=== PATIENT | female | born 1960 | race Caucasian/White ===

== ENCOUNTER 2023-10-01 08:57 | Outpatient (AMB) | payer BC, SELFPAY ==
[2023-10-01 09:05] VITALS: BP 120/90; PULSE 83; TEMP 36.7; O2SAT 97; BMI 33.1
--- NOTE | 2023-10-01 09:05 | MHC.OFFWIV ---
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 This occurred yesterday at home [facility] Social History Patient Tobacco Use Status: Never used Tobacco Review of Systems Const All systems reviewed & are unremarkable except as noted in HPI and below Physical Exam Vital Signs: Last Vital Signs Temp 98.0 F 10/01/23 09:05 Pulse 83 10/01/23 09:05 BP 120/90 H 10/01/23 09:05 Pulse Ox 97 10/01/23 09:05 Oxygen Delivery Method Room Air 10/01/23 09:05 BMI result Body Mass Index 33.1 Extrem Right upper extremity: Extremity exam: right hand Details: swelling and foreign body Location: of the thumb Location: at the nailbed and involving the fingernail (Large wood foreign body located under the nail) Results Reviewed Results Reviewed: After local anesthesia with 2% lidocaine the nail of the right thumb was trimmed slightly and using a hemostat the large wooden foreign body was removed in 1 piece. This was reviewed with the patient Assessment & Plan Assessment & Plan (1) Foreign body (FB) in soft tissue: Code(s): M79.5 - Residual foreign body in soft tissue Plan: Excision of foreign body was completed successfully. The patient will keep her dry sterile dressing on for 48 hours. If she develops increasing pain after that time she is to return to urgent care for possible antibiotics Plan See plan Coding Level of Care Code Est Pt Level 3 (31327) Diagnoses Foreign body (FB) in soft tissue M79.5
== END 2023-10-01 10:39 | disposition home or self-care (01) ==
PROVIDERS: PCP Internal Medicine; Visit Provider Physician Assistant Medical
DX: M79.5 Residual foreign body in soft tissue (principal)
CPT/HCPCS: 99213

== ENCOUNTER 2024-10-26 13:49 | Outpatient (AMB) | payer BC, SELFPAY ==
--- NOTE | 2024-10-26 13:58 | MHC.OFFWIV ---
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 She states that she started with a sore throat last night. She states that her throat was scratchy but she had no pain with swallowing. She states that she has some post nasal drip. She has a slight runny nose. She states that her throat hurt more this am and she took an allergy medicine at home. She has no associated HERNANDEZ, ear pain, CP, SOB, cough, sinus pain or pressure. She denies fever or chills. She denies sick contacts. She denies smoking. She states that she also noted to have a bump on the right inner thigh. She states that she did not think much of it but then when she took a shower she noticed a raised bump with redness around it. She states that she was worried because it was raised and had redness around it. She denies other rashes or lesions. She denies discharge or bleeding. She denies fever, chills or joint pain. [facility] Social History (System 01/08/24 @ 15:18 by Rubi Ojeda) Patient Tobacco Use Status: Never used Tobacco Patient : No Review of Systems Const Denies body aches, Denies chills, Denies fever(s), Denies headache(s) and Denies poor appetite ENT Denies otalgia, Denies facial pain, Denies headache(s), Denies nasal discharge, Denies sinus pain, Denies sinus pressure, Reports sore throat and Denies throat swelling Card Denies chest pain and Denies dyspnea Resp Denies chest congestion, Denies cough, Denies dyspnea and Denies wheezing GI Reports no additional complaints Musc Denies myalgias Skin/Breast Denies pruritus, Reports lesions, Denies erythema and Denies rash Neuro Denies headache(s) Artemio/Lymph Denies lymphadenopathy Aller/Immun Denies urticaria, Reports seasonal rhinorrhea, Denies throat swelling and Denies wheezing Physical Exam Vital Signs: Last Vital Signs Temp 98.7 F 10/26/24 14:02 Pulse 79 10/26/24 14:02 Resp 16 10/26/24 14:02 BP 124/74 10/26/24 14:02 BMI result Body Mass Index 33.6 Const General: cooperative, healthy appearing, comfortable, no acute distress, well developed, alert and awake Nutritional Appearance: well nourished HEENT Head: Yes normocephalic Ears: TM's normal bilaterally General nose exam: Normal nares present, Normal nasal mucous membranes and turbinates present and No nasal discharge present Face and sinus: Yes sinuses nontender Mouth: Normal oral and palatal mucosa present, oropharynx normal and moist mucous membranes Throat: Yes posterior oropharynx normal, Yes tonsils normal and Yes uvula midline Resp Auscultation: clear to auscultation bilaterally Cardio Rate: regular rate Rhythm: regular rhythm Skin Lesions: lesion noted (Small pustule noted on the rt inner upper thigh with mild erythema noted.) Office Procedures I&D Drain Details: Cleaned area with alcohol. Used an 18 guage to deroof the pustule. No purulent drainage noted. Cleaned area with normal saline. Bandaid applied. [id number] Drainage of Lesion All charges added?: Procedure code (CPT) selection complete Results AMB Rapid Strep AMB Rapid Strep Negative Last Edit by Papo Julio CMA on 10/26/24 14:44 Assessment & Plan Assessment & Plan (1) Sore throat (viral): Code(s): J02.8 - Acute pharyngitis due to other specified organisms; B97.89 - Other viral agents as the cause of diseases classified elsewhere Plan: Most likely viral vs strep vs URI plan- -rapid culture in the office was negative -salt water gargles -Tylenol or Motrin as needed -zyrtec D daily -flonase daily to each nostril -diet as tolerated (2) Pustule: Code(s): L08.9 - Local infection of the skin and subcutaneous tissue, unspecified Plan: Most likely folliculitis plan- -warm compresses to the area -bactroban ointment to the area BID for 10 days -watch for signs of infection, discharge or fever Orders: Orders AMB Rapid Strep Screen Today Z13.9 - Encounter for screening, unspecified AMB Incision & Drainage Today L08.9 - Local infection of the skin and subcutaneous tissue, unspecified Medications: New cetirizine-pseudoephedrine 5-120 mg ER (Zyrtec-D) 1 tab PO DAILY 14 days 14 tabs 0RF mupirocin 2% 1 appl topical BID 10 days 22 grams 0RF fluticasone propionate 50 mcg/actuation (Flonase Allergy Relief) administer into each nostril 1 spray intranasal DAILY 16 grams 0RF Coding Level of Care Code New Pt Level 3 (47144) Diagnoses Sore throat (viral) J02.8; B97.89 Pustule L08.9 CPT Codes I&D Drain - DRAIN 10: [id number] Drainage of Lesion ([id number])
[2024-10-26 14:02] VITALS: BP 124/74; PULSE 79; RESP 16; TEMP 37.1; BMI 33.6
--- OUTSIDE RECORDS SUMMARY | 2024-10-26 14:46 | XMS_ITS | Patient Health Record ---
Author Organization [facility] [place] Address [address] [place] [address] Care Team Providers Care Salesperson Recreational Vehicles Name Role Phone Yenni CAICEDO, Cheryl Primary Care Provider Unav ailable Black, Dayanara Unavailable [phone] Allergies Allergen (clinical drug ingredient) Drug/Non Drug Allergy documented on EMR Reaction Allergy Type Onset Date Status sulfamethoxazole / trimethoprim Bactrim rash Drug Allergy Active Darvon Unknown Drug Allergy Active acetaminophen / oxycodone Percocet Unknown Drug Allergy Active codeine Codeine vomiting Drug Allergy Active Reason For Referral No Information Medications Medication SIG (Take, Route, Fr equency, Duration) Notes Start Date End Date Status Omeprazole Active Advil 200 MG 1 tablet as needed O rally every 6 hrs 02/20/2014 Unknown Vitamin B Complex Ac tive Multivitamin Active Vitamin D Active Fish Oil Active Vitamin E Active Social History Tobacco use other than smoking: Question Answer Notes Are you an other tobacco user? No Problems Problem Type SNOMED Code ICD Code Onset Dates Problem Status W/U Status Risk Notes Problem Acquired hammer toe of right foot (1156008630512214) Other hammer toe(s) (acquired), right foot (M20.41) Active confirmed Problem Acquired hammer toe of left foot (8884575390702991) Other hammer toe(s) (acquired), left foot (M20.42) Active confirmed Problem Localized, primary osteoarthritis of the ankle and/or foot (527218518) Arthritis of joint of lesser toe, left (M19.072) Active confirmed Problem Localized, primary osteoarthritis of the ankle and/or foot (125191551) Arthritis of joint of lesser toe, right (M19.071) Active confirmed Plan Of Treatment Pending Test Test Name Order Date X ray : Foot, left 2V 02/20/2014 X ray : Foot, right 2V 02/20/2014 X ray : Foot, left 3V 08/06/2015 Insurance Providers Payer Name Payer Address Payer Phone Subscriber Number Group Number Insured Name Patient Relationship to Insured Coverage Start Date Coverage End Date [facility] [address] [place] [address] [id number] Teo Chery Self - patient is the insured Medical (General) History Medical History History ICD Code Depression Arthritis Broken bones Gall bladder problems Chicken pox Surgical History Surgery Date(Month/Year) cholecystectomy hysterectomy Gall bladder removal 2008
== END 2024-10-26 14:45 | disposition home or self-care (01) ==
PROVIDERS: PCP Internal Medicine; Visit Provider Physician Assistant Medical
DX: J02.8 Acute pharyngitis due to other specified organisms (principal); B97.89 Other viral agents as the cause of diseases classified elsewhere; L08.9 Local infection of the skin and subcutaneous tissue, unspecified

== ENCOUNTER → 2024-10-26 13:49 | Outpatient (BNVA) | payer BC, SELFPAY | PROVIDERS: PCP Internal Medicine; Visit Provider Physician Assistant Medical | DX: J02.8 Acute pharyngitis due to other specified organisms (principal); B97.89 Other viral agents as the cause of diseases classified elsewhere; L08.9 Local infection of the skin and subcutaneous tissue, unspecified | CPT/HCPCS: 10160; 87880 ==

== ENCOUNTER 2024-12-26 13:50 | Outpatient (AMB) | payer BC, SELFPAY ==
[2024-12-26 14:15] VITALS: BP 102/70; PULSE 100; TEMP 36.8; O2SAT 97; BMI 32.0
--- NOTE | 2024-12-26 14:15 | AM.OFFWIN_ITS ---
Intake Vital Signs 12/26/24 14:15 Height 5 ft 6 in Weight 198 lb BMI 32.0 BP 102/70 Blood Pressure Location Rt brachial Position Sitting Pulse 100 Pulse Source Pulse Oximeter Temp 98.2 F Temp Source Oral Pulse Oximetry (%) 97 Oxygen Delivery Method Room Air Intake Visit Reasons: EP pain on LT ear Intake Note: pt presents with LT ear pain for a couple days Patient Tobacco Use Status: Never used Tobacco Allergies acetaminophen (From Percocet) Allergy (Intermediate, Verified 12/26/24 14:16) Vomiting oxycodone (From Percocet) Allergy (Intermediate, Verified 12/26/24 14:16) Vomiting codeine (CODEINE) Allergy (Unknown, Verified 12/26/24 14:16) UNKNOWN From DARVON-N Allergy (Unknown, Uncoded 01/08/24 15:18) STOMACH UPSET Medication List - Last Reconciled 12/26/24 by Tori Yepez PA-C alprazolam 0.5 mg PO QID PRN fluticasone propionate 50 mcg/actuation (Flonase Allergy Relief) 1 spray intranasal DAILY PRN loratadine (Claritin) 10 mg PO DAILY mupirocin 2% 1 appl topical BID PRN Do you need a note to return to daycare/school/sports/work: No HPI HPI Comments History of Present Illness Details History - The patient is a 64-year-old female pr esenting with ear pain and blockage in the left ear. - The patient reports a history of earac hes, with the current episode starting approximately three to four days ago, prior to a family bereavement. - The pain has been severe enough to pre vent sleep for the past two nights, and the patient has attempted self-treatment with Advil, Afrin, and Claritin without relief. - The patient reports significant hearin g loss in the affected ear, unable to hear the television even at high volume, and notes that the ear feels blocked. - The patient has a history of small ear canals, requiring regular wax removal every six months due to hearing issues. - The patient denies fever but reports t enderness and pain extending to the surrounding skin and lymph nodes. Physical Exam General: Cooperative, healthy appearing, comfortable, no acute distress and well developed Orientation: Patient oriented x3 Limitations: No limitations Head: Normal to inspection Ears: External ears normal bilaterally, TM normal right ear, left EAC with edema and erythema unable to visualize TM on the left Face and sinus: Normal facial exam Neck: Normal visual inspection and Yes full ROM, left post auricular lymphedema and ttp Respiratory: Normal respiratory effort and able to speak in complete sentences. Skin: No rashes or lesions noted Neuro: Patient oriented x3 Extremities: normal to inspection [facility] Social History (System 01/08/24 @ 15:18 by Rubi Ojeda) Patient Tobacco Use Status: Never used Tobacco Review of Systems Const All systems reviewed & are unremarkable except as noted in HPI and below Physical Exam Vital Signs: Last Vital Signs Temp 98.2 F 12/26/24 14:15 Pulse 100 12/26/24 14:15 BP 102/70 12/26/24 14:15 Pulse Ox 97 12/26/24 14:15 Oxygen Delivery Method Room Air 12/26/24 14:15 BMI result Body Mass Index 32.0 Assessment & Plan Assessment & Plan (1) Left otitis externa: Code(s): H60.92 - Unspecified otitis externa, left ear Qualifiers: Chronicity: acute Otitis externa type: diffuse Qualified Code(s): H60.312 - Diffuse otitis externa, left ear Plan: Plan Patient was informed and verbally consented to the use of an ambient scribe for clinic note documentation during this visit. 1. Acute Otitis Externa left side - Prescribed ear drops containing a steroid and antibiotic to reduce inflammation and treat infection. - Advised to increase fluid intake to help flush out the infection. - Recommended use of ibuprofen for pain management. - Follow up with PCP if no improvement in pain. Medications: New [id number] 3.5-10,000-1 mg/mL-unit/mL-% 4 drps otic (ear) left QID 10 mL 0RF 7 days Tori Yepez PA-C Changed From fluticasone propionate 50 mcg/actuation (Flonase Allergy Relief) administer into each nostril 1 spray intranasal DAILY 16 grams 0RF To fluticasone propionate 50 mcg/actuation (Flonase Allergy Relief) administer into each nostril 1 spray intranasal DAILY PRN YAZAN Bro From mupirocin 2% 1 appl topical BID 10 days 22 grams 0RF To mupirocin 2% 1 appl topical BID PRN Rizwana Vu PA-C Coding Level of Care Code New Pt Level 3 (32773) Diagnoses Acute diffuse otitis externa of left ear H60.312 Chronicity: acute Otitis externa type: diffuse
--- OUTSIDE RECORDS SUMMARY | 2024-12-26 14:30 | XMS_ITS | Patient Health Record ---
Author Organization [facility] [place] Address [address] [place] [address] Care Team Providers Care Event Lighting Specialist Name Role Phone Yenni CAICEDO, Cheryl Primary Care Provider Unav ailable Black, Dayanara Unavailable [phone] Allergies Allergen (clinical drug ingredient) Drug/Non Drug [...] Problem Acquired hammer toe of right foot ([id number]) Other hammer toe(s) (acquired), right foot (M20.41) Active confirmed Problem Acquired hammer toe of left foot ([id number]) Other hammer toe(s) (acquired), left foot (M20.42) Active confirmed Problem Localized, primary osteoarthritis of the ankle and/or foot (290026400) Arthritis of joint of lesser toe, left (M19.072) Active confirmed Problem Localized, primary osteoarthritis of the ankle and/or foot (323382094) Arthritis of joint of lesser toe, right [...] Insured Coverage Start Date Coverage End Date [facility] [address] [place] [address] [id number] Teo Chery Self - patient is the insured Medical (General) History Medical History History ICD Code Depression Arthritis Broken bones Gall bladder problems Chicken pox Surgical History Surgery Date(Month/Year) cholecystectomy hysterectomy Gall bladder removal 2008
--- OUTSIDE RECORDS SUMMARY | 2024-12-26 14:30 | XMS_ITS | Data Portability ---
Author Organization [place] - [facility], Allergy Address [address] [address] Care Team Providers Care Golf [employer] Maker Name Role Phone HODA CHAMPION Primary Care Provider Assessment Encounter Date Assessment Date Assessment LastModified by Organization Details LastModified Time 02/16/2024 02/16/2024 Impacted cerumen was debrided bilaterally today. She will return in six months. [email or web address] Not available 02/16/2024 13:44:25 08/25/2024 08/25/2024 Impacted cerumen was removed bilaterally. Patient reported immediate improvement in her hearing. She would like to hold off on repeat audiogram today. She will follow up at her convenience for evaluation of her throat. Recommend six month ear cleaning. [email or web address] Not available 08/25/2024 09:33:12 Plan of Treatment Reminders Order Date Submit Date Provider Last Modified By Organization Details Last Modified Time Details Appointments Establish ed 15 2024 09:15A M LUZ DONOHUE MD Not available Not available Not available Lab None recorded. Referral None recorded. Procedures None recorded. Surgeries None recorded. Imaging None recorded. Medication Orders None recorded. Patient TargetsNo targets recorded. Patient InstructionsNo instructions recorded. Reason for Referral None Reported. Results Created Date Observation Date Name Description Value Unit Range Abnormal Flag Note LastModifiedBy Organization Detail LastModifiedTime 01/20/20 24 06/26/2021 imagi ng/di agnos tic resul t No observ ation record ed. [email or web address] Not Available 05:04:32 01/20/20 24 05/28/2021 imagi ng/di agnos tic resul t No observ ation record ed. [email or web address] Not Available 05:05:05 Result Notes None recorded. Problems Name Problem SNOMED Code Status Onset Date Resolution Date Notes Provider Name and Address Organization Details Recorded Time Deviated nasal septum 931593941 Active 2016 Deviated nasal septum; Note: Date Diagnosed : 03/09/2017 10:52 AM (J34.2) Not Available [facility] 4 02:21:23 Headache 66010626 Active 2016 Headache; Note: Date Diagnosed : 03/09/2017 10:53 AM (R51) Not Available [facility] 4 02:21:03 Gastroeso phageal reflux disease without esophagit is 349105415 Active 2020 Gastro-es ophageal reflux disease without esophagit is; Note: Date Diagnosed : 1 2:17 PM (K21.9) Not Available [facility] 4 02:21:17 Non-toxic uninodula r goiter 938094879 Active 2020 Nontoxic single thyroid nodule; Note: Date Diagnosed : 1 2:17 PM (E04.1) Not Available [facility] 4 02:20:45 Impacted cerumen of bilateral ears 78227576681 11755 Active 2020 Impacted cerumen, bilateral ; Note: Date Diagnosed : 1 2:17 PM (H61.23) Not Available [facility] 4 02:20:46 Respirato ry finding 780691385 Active 2020 Feeling of foreign body in throat; Note: Date Diagnosed : 1 2:17 PM (R09.89) Not Available [facility] 4 02:21:14 Cardiovas cular finding 738673759 Active 2020 Feeling of foreign body in throat; Note: Date Diagnosed : 1 2:17 PM (R09.89) Not Available [facility] 4 02:21:14 Sensorine ural hearing loss of bilateral ears 789413677 Active 2020 Sensorine ural hearing loss, bilateral ; Note: Date Diagnosed : 1 12:35 PM (H90.3) Not Available [facility] 4 02:21:19 Impacted cerumen 42610634 Active 2021 Impacted cerumen; Note: Date Diagnosed : 11/11/2021 9:41 AM (380.4) Not Available [facility] 4 02:21:22 Problem Notes None recorded. Procedures Surgical History Date Name Laterality Status Provider Name and Address Organization Details Recorded Time 5 Cerumen removal without microscope bilat completed HARLEY PEACE PA-C [address] [facility] [[email or web address] [address], [place], [address], [facility] - [facility] 08/25/2024 09:32:20 Imaging Results None recorded. Procedure Notes None recorded. Medical Equipment None Reported. Allergies Allergen ID Allergen Name Allergen Category Reaction Reaction Severity Criticality Documentation Date Start Date Code Code System Note Provider Name and Address Organization Details Recorded Time 85616 Darvocet- N medicatio n other Not available Not available 10/13/2023 47129 UNK React ion: other react ion, Unkno wn; Not Available [facility] 4 00:52:13 68395 codeine medicatio n other Not available Not available 10/13/2023 2670 RxNorm React ion: other react ion, Unkno wn; Not Available [facility] 4 00:52:22 72238 acetamino phen / oxycodone medicatio n other Not available Not available 10/13/2023 12367 3 RxNorm React ion: unkno wn, unspe cifie d;; Not Available [facility] 4 00:52:25 Medications Name Sig Start Date Stop Date Status Note LastModified by Organization Details LastModified Time amoxicill in 500 mg capsule TAKE 1 CAPSULE BY MOUTH THREE TIMES A DAY active Not Available Not Available No t Available fluconazo le 100 mg tablet TAKE 1 TABLET BY MOUTH DAILY FOR 14 DAYS active Not Available Not Available No t Available azithromy gillian 250 mg tablet TAKE 2 TABLETS BY MOUTH TODAY, THEN TAKE 1 TABLET DAILY FOR 4 DAYS DIRECTED active Not Available Not Available No t Available tretinoin 0.025 % topical cream PLEASE SEE ATTACHED FOR DETAILED DIRECTIO NS active Not Available Not Available No t Available phenazopy ridine 200 mg tablet TAKE 1 TABLET BY MOUTH THREE TIMES A DAY active Not Available Not Available No t Available ondansetr on HCl 4 mg tablet NEEDED TAKE ONE OR TWO TABS BY MOUTH EVERY 8 HOURS NEEDED FOR NAUSEA active Not Available Not Available No t Available clonazepa m 0.5 mg tablet 03/25 completed Medicati on ID: [id number] D uration Value: 30 Brand Name: clonazep am Send Method: E-Prescr ibed Sub s Allowed: subs OK Medic ationGen ericName : clonazep am Not Available Not Available Not Available valacyclo vir 500 mg tablet TAKE ONE TABLET BY MOUTH TWICE A DAY BEGINNIN G ONE DAY PRE-OP FOR A TOTAL OF THREE DAYS active Not Available Not Available No t Available ciproflox acin 500 mg tablet TAKE 1 TABLET BY MOUTH TWICE A DAY active Not Available Not Available No t Available clindamyc in 1 %-benzoyl peroxide 5 % topical gel APPLY SPARINGL Y TWICE A DAY TO BUTTOCK AREA RASH UNTIL CLEAR, THEN NEEDED active Not Available Not Available No t Available lidocaine -prilocai ne 2.5 %-2.5 % topical cream APPLY TOPICALL Y TO AFFECTED AREA DIRECTED BY PHYSICIA N 30G 6RF active Not Available Not Available No t Available alprazola m 0.5 mg tablet TAKE 1 TABLET BY MOUTH EVERY 6 TO 8 HOURS active Not Available Not Available No t Available clindamyc in 1 % topical gel APPLY TWICE DAILY FOR ACTIVE PIMPLES active Not Available Not Available No t Available benzonata te 100 mg capsule TAKE 1 CAPSULE BY MOUTH 3 TIMES A DAY NEEDED FOR COUGH active Not Available Not Available No t Available esomepraz ole magnesium 40 mg capsule,d elayed release TAKE 1 CAPSULE BY MOUTH TWICE A DAY active Not Available Not Available No t Available hydrocodo ne-homatr opine 5 mg-1.5 mg/5 mL oral solution TAKE 5 TO 10 ML BY MOUTH EVERY 6 HOURS FOR COUGH SUPRESSI ON (MAX 150 PER INS) active Not Available Not Available No t Available betametha sone, augmented 0.05 % topical ointment APPLY TWICE DAILY NEEDED FOR ECZEMA active Not Available Not Available No t Available omeprazol e 20 mg capsule,d elayed release 2020 active Medicati on ID: [id number] B rand Name: omeprazo le Send Method: E-Prescr ibed Sub s Allowed: subs OK Medic ationGen ericName : omeprazo le Not Available Not Available Not Available zolpidem 5 mg tablet TAKE ONE TABLET AT BEDTIME FOR CHRONIC INSOMNIA active Not Available Not Available No t Available methylpre dnisolone 4 mg tablets in a dose pack TAKE 6 TABLETS ON DAY 1 DIRECTED ON PACKAGE AND DECREASE BY 1 TAB EACH DAY FOR A TOTAL OF 6 DAYS active Not Available Not Available No t Available albuterol sulfate HFA 90 mcg/actua tion aerosol inhaler INHALE 1 TO 2 PUFFS BY MOUTH EVERY 6 HOURS NEEDED active Not Available Not Available No t Available amoxicill in 875 mg-potass ium clavulana te 125 mg tablet TAKE 1 TABLET BY MOUTH TWICE A DAY WITH FOOD active Not Available Not Available No t Available bupropion HCl XL 150 mg 24 hr tablet, extended release 03/25 completed Medicati on ID: [id number] D uration Value: 30 Brand Name: bupropio n HCl Send Method: E-Prescr ibed Sub s Allowed: subs OK Medic ationGen ericName : bupropio n HCl Not Available Not Available Not Available tiotropiu m bromide 18 mcg capsule with inhalatio n device INHALE THE CONTENTS OF 1 CAPSULE INTO THE LUNGS VIA HANDIHAL ER ONCE DAILY. active Not Available Not Available No t Available nitrofura ntoin monohydra te/macroc rystals 100 mg capsule TAKE 1 CAPSULE BY MOUTH TWICE A DAY active Not Available Not Available No t Available metronida zole 1 % topical gel 03/25 completed Medicati on ID: [id number] D uration Value: 20 Brand Name: metronid azole Se nd Method: E-Prescr ibed Sub s Allowed: subs OK Medic ationGen ericName : metronid azole Not Available Not Available Not Available GaviLyte- G 236 gram-22.7 4 gram-6.74 gram-5.86 gram oral solution MIX/PREP AND DRINK 8 OZ EVERY 10-15 MINUTES UNTIL FINISHED active Not Available Not Available No t Available Yuvafem 10 mcg vaginal tablet INSERT ONE TAB VAGINALL Y 3 TIMES A WEEK 36 4RF active Not Available Not Available No t Available Vitals Date Recorded Body height Body mass index (BMI) Body weight Provider Name and Address Organization Details Last Updated DateTime 08/25/2024 167.64 cm 31.5 kg/m2 24204.51 g Carli Cortez [facility] 08/25/2024 09:14:41 Date Recorded Body height Body mass index (BMI) Body weight Provider Name and Address Organization Details Last Updated DateTime 02/16/2024 167.64 cm 31.5 kg/m2 78989.51 g Roger Patti [facility] 02/16/2024 13:36:16 Social History None recorded. Functional Status None recorded. Mental Status None recorded. Family History Nothing Reported. Medical History No medical history recorded. Gynecological HistoryNo gynecological history recorded. Obstetrics History GPAL:G 0 P 0 0 0 0 Past Encounters Encounter ID Performer Location Encounter Start Date Encounter Closed Date Diagnosis/Indication Diagnosis SNOMED-CT Code Diagnosis ICD10 Code Diagnosis Note [id number] LISSETT RODRIGUEZ PA-C [facility] on [address] [place] [phone] 02/16/2024 13:22:45 02/16/2024 13:45:09 Impacted cerumen of bilateral ears 2934320247 467661 H61.23 [id number] HARLEY PEACE PA-C [facility] on [address] [place] [phone] 08/25/2024 08:59:50 08/25/2024 09:29:03 Impacted cerumen of bilateral ears [id number] 534169 H61.23 Health Concerns Section Related Observation LastModified by Organization Detai ls LastModified Time None Recorded Concern Status LastModified by Organization Details LastModified Time None Recorded Advance Directives Directive None Recorded Payers Insurance Date Sequence Insurance Name Policy Number Policy Ghotra Covered Member ID Ghotra Member ID Guarantor Name 09/07/2024 1 EYAD (PPO) [id number] Teo Chery [id number] Teo Chery OBGyn Episode No OBEpisode recorded.
--- OUTSIDE RECORDS SUMMARY | 2024-12-26 14:30 | XMS_ITS | Clinical Summary ---
Author Organization [facility] Address [address] [place] [id number] Phone Care Team Providers Care Instructor Painting Name Role Phone Cheryl Hyman MD Primary Care Provider Allergies Active Allergy Reactions Criticality Noted Date Comments Codeine Nausea and/or Vomiting 07/09/2018 Propoxyphene 07/09/2018 Oxycodone-Acetaminophen Nausea and/or Vomiting 07/09/2018 Medications ascorbic acid, vitamin C, (VITAMIN C) 250 MG tablet Take 250 mg by mouth daily. Active esomeprazole (NEXIUM) 20 MG capsule Take 20 mg by mouth daily before breakfast. Active lidocaine 5 % ointment Apply topically as needed. 30 g 12 9 Active cholecalciferol (VITAMIN D3) 2,000 unit capsule Take 2,000 Units by mouth daily. Active ALPRAZolam (XANAX) 0.5 MG tablet 9 Active YUVAFEM 10 mcg Tab 0 Active triamcinolone acetonide 0.1 % ointmentIndicat ions:Labial irritation Apply topically 2 (two) times a day. 30 g 1 Active Active Problems Problem Noted Date Diagnosed Date Chronic fatigue 12/13/2018 Assessment & Plan (01/21/2019 9:13 AM EDT): I did not find any endocrine cause for fatigue. She does not have adrenal insufficiency as indicated in the HPI and this was her main concern. I do find that she is overweight and she could lose weight and possibly feel better. I think she should exercise because she also has a lot of anxiety and worries about a lot of things are necessarily and she knows this. Exercise will help relieve stress will help her lose weight and she will feel more energetic overall. She needs to incorporate diet healthy diet and also get good sleep hygiene. If she feels he needs to see a dietitian to help in this regard that would be beneficial. She informs me that she is going to try this on home for the next 2 months and if she is not successful she will come back actually she wants to schedule a follow-up appointment now for obesity management. Weight loss medications may be helpful for her in this respect. Assessment & Plan (12/13/2018 11:16 AM EDT): The patient had had fatigue may be a year after an adrenalectomy. She wonders if it is at all related. She has one adrenal gland but this should produce enough cortisol to prevent her from becoming adrenal insufficient. In any case I would like to check comprehensive levels for electrolytes and check a fasting cortisol level for evaluation of deficiency which could imply adrenal insufficiency. However fatigue could be related to so many different reasons. I will also check CBC for anemia, ESR for inflammatory causes of magnesium to ensure that levels are within the reference range. She was vitamin D deficient in the past which can cause fatigue but doubt this is within the reference range and she is not hypothyroid. 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 Abnormal weight gain 07/09/2018 Menopause syndrome 07/09/2018 Family history of breast cancer 07/09/2018 Family history of colon cancer in father 019 Encounter for routine gynecological examination 07/09/2018 Vaginitis and vulvovaginitis 07/09/2018 Vaginal atrophy 07/09/2018 Immunizations Immunization Administration Dates Next Due Influenza Trivalent Preservative Free IM 015 Family History Medical History Relation Comments Colon cancer Father Pneumonia Father Breast cancer Mother Relation Status Comments Father Mother Social History Tobacco Use Types Packs/Day Years Used Date Smoking Tobacco: Never Smokeless Tobacco: Never Alcohol Use Standard Drinks/Week Comments Yes 0 (1 standard drink = 0.6 oz pur e alcohol) rare Education Answer Date Recorded Are you interested in more education? Not on brenden e 09/26/2022 Are you concerned about learning? Not on file 09/26/2022 No 09/26/2022 No 09/26/2022 Digital Access Answer Date Recorded No 10/27/2022 No 10/27/2022 No 10/27/2022 Reliable internet access at home? Not on file 10/27/2022 Device with a working camera? Not on file Comments No Sex and Gender Information Value Date Recorded Sex Assigned at Not on file Legal Sex Female 2:53 PM EDT Gender Identity Not on file Sexual Orientation Not on file Last Filed Vital Signs Vital Sign Reading Time Taken Comments Blood Pressure 118/82 04/17/2021 3:24 PM EST Pulse 69 01/21/2019 8:43 AM EDT Temperature 36.3 C (97.3 F) 12/15/2018 2:00 PM EDT Respiratory Rate 18 12/15/2018 2:00 PM EDT Oxygen Saturation 96% 01/21/2019 8:43 AM EDT Inhaled Oxygen Concentration - - Weight 97.5 kg (215 lb) 03/29/2020 9:35 AM EDT Height 166.4 cm (5' 5.5 ) 04/17/2021 3:24 PM EST Body Mass Index 35.23 03/29/2020 9:35 AM EDT Plan of Treatment Health Maintenance Due Date Last Done Comments Adult Td,Tdap Booster 1959 LIPID PANEL 1959 DEPRESSION SCREENING 1971 HEPATITIS C SCREENING 1977 HIV ONE-TIME SCREENING (18-6 5 YEARS) 1977 MAMMOGRAM 1999 COLOGUARD 2004 COLONOSCOPY 2004 COLORECTAL CANCER SCREENING 2004 FIT TEST 2004 FOBT 2004 SIGMOIDOSCOPY 2004 VIRTUAL COLONOSCOPY 2004 PNEUMOCOCCAL VACCINES (50+ y ears) (1 of 1 - PCV) 2009 ZOSTER VACCINES (1 of 2) 2009 COVID-19 VACCINE ( - 2023-2 5 season) 2024 OSTEOPOROSIS SCREENING INITI AL (ONE-TIME) 2024 RSV VACCINE (1 - 1-dose 75+ series) 2034 SMOKING STATUS SCREENING (On ce After 26 Yrs) Completed 03/29/2020 HEPATITIS A VACCINES Aged Out No long er eligible based on patient's age to complete this topic HIB VACCINES Aged Out No longer eligi ble based on patient's age to complete this topic MENINGOCOCCAL VACCINES (ACWY) Aged Out No longer eligible based on patient's age to complete this topic MENINGOCOCCAL VACCINES (B) Aged Out N o longer eligible based on patient's age to complete this topic Medical Devices Not on file Insurance [facility] PPO [facility] [place] [address] [place] [address] PPO [facility]PO [facility]PO [facility]PO [facility] PPO [facility] PPO [facility] PPO Care Teams Instructor Painting Relationship Specialty Start Date End Date Cheryl Hyman MD [address] [place] [id number] PCP - General Internal Medicine 11/12/18 Additional Source Comments The information contained in this document represents components of the legal health record. It is not the complete legal health record.[facility]
--- OUTSIDE RECORDS SUMMARY | 2024-12-26 14:30 | XMS_ITS | Clinical Summary ---
Author Organization [facility] [address] [facility] Address [address] [place] [address] Phone Care Team Providers Care Councilman Name Role Phone Hoda Wilks MD Primary Care Provider Allergies Active Allergy Reactions Criticality Noted Date Comments Codeine 06/21/2024 Propoxyphene 06/21/2024 Medications esomeprazole (NexIUM) [address] capsule Take 1 capsule (40 mg total) by mouth 2 (two) times a day. 04/29/2024 Active ALPRAZolam (XANAX) 0.5 mg tablet Take 1 tablet (0.5 mg total) by mouth. every 6 to 8 hours 04/06/2024 Active Active Problems Problem Noted Date Diagnosed Date Fatty liver 04/12/2024 Benign pheochromocytoma 04/12/2024 Overview (04/12/2024): Removed surgically Hemangioma of liver 04/12/2024 Right lower quadrant abdominal pain 04/12/2024 History of colon polyps 04/12/2024 Surgical History Surgery Date Site/Laterality Comments STEREOTACTIC CORE BIOPSY Left 1993 Medical History Medical History Date Comments BRCA1 gene mutation negative BRCA2 gene mutation negative Family History Medical History Relation Name Comments Breast cancer Mother Breast cancer Mother's Sister Relation Name Status Comments Mother Mother's Sister Social History Tobacco Use Types Packs/Day Years Used Date Smoking Tobacco: Never Tobacco Cessation:Counseling Given: Not Answered Alcohol Use Standard Drinks/Week Comments Not Currently 0 (1 standard drink = 0.6 oz pur e alcohol) Comments No Sex and Gender Information Value Date Recorded Sex Assigned at Not on file Legal Sex Female 12:26 PM EST Gender Identity Not on file Sexual Orientation Not on file Obstetrics History Last Filed Vital Signs Vital Sign Reading Time Taken Comments Blood Pressure - - Pulse - - Temperature - - Respiratory Rate - - Oxygen Saturation - - Inhaled Oxygen Concentration - - Weight 89.8 kg (198 lb) 08/08/2024 1:23 PM EDT Height 167.6 cm (5' 6 ) 08/08/2024 1:23 PM EDT Body Mass Index 31.96 08/08/2024 1:23 PM EDT Plan of Treatment Health Maintenance Due Date Last Done Comments DTaP,Tdap,and Td Vaccines (1 - Tdap) 1978 Pneumococcal Vaccine: 50+ Years (1 of 2 - PCV) 1978 Cervical Cancer Screening: Pap Smear 1980 Zoster Vaccines (1 of 2) 2009 Hepatitis C Screening 04/29/2022 Social Influencers of Health Screening 04/29/2022 COVID-19 Vaccine ( season) 2024 Depression Screening 06/01/2024 Falls Risk Assessment 2024 Influenza Vaccine (#1) 2025 04/09/2015 Breast Cancer Screening 08/08/2026 08/09/19, 02/11/2024, 02/09/2023, Additional history exists Osteoporosis Screening (Bone Density Screening) 03/03/2032 03/03/2022 Colorectal Cancer Screening: Colonoscopy 07/08/2033 07/08/2023 RSV Immunization Adult Patients (1 - 1-dose 75+ series) 2034 HIB Vaccines Aged Out No longer eligi ble based on patient's age to complete this topic HPV Vaccines Aged Out No longer eligi ble based on patient's age to complete this topic Hepatitis A Vaccines Aged Out No long er eligible based on patient's age to complete this topic Hepatitis B Vaccines Aged Out No long er eligible based on patient's age to complete this topic IPV Vaccines Aged Out No longer eligi ble based on patient's age to complete this topic MMR Vaccines Aged Out No longer eligi ble based on patient's age to complete this topic Meningococcal ACWY Vaccine Aged Out N o longer eligible based on patient's age to complete this topic Meningococcal B Vaccine Aged Out No l onger eligible based on patient's age to complete this topic RSV Immunization Patients Under 20 months Aged Out No longer eligible based on patient's age to complete this topic Varicella Vaccines Aged Out No longer eligible based on patient's age to complete this topic Procedures Procedure Name Priority Date/Time Associated Diagnosis Comments MG MAMMO DIGITAL DIAGNOSTIC W KEEGAN LEFT Routine 08/08/2024 2:24 PM EDT Mastodynia COLONOSCOPY Routine 07/08/2023 2:45 PM EST RIGO DEXA AXIAL SKELETON Routine 03/03/2022 11:47 AM EDT Encounter for screening for osteoporosis from Last 3 Months or Most Recently Relevant to Health Maintenance Results * MG Mammo Digital Diagnostic w Keegan Left (08/08/2024 2:24 PM EDT) Anatomical Region Laterality Modality Breast Left Mammography 08/08/2024 2:26 PM EDT Impressions 08/08/2024 2:32 PM EDT No mammographic or sonographic evidence of malignancy. No suspicious finding in the area of left breast pain. The patient should be managed on the basis of the clinical breast exam. ASSESSMENT: BI-RADS 1: NEGATIVE RECOMMENDATION(S): 1: Clinical correlation recommended LEFT The patient should resume regular screening mammography [facility] [address], [address] -------- FINAL REPORT -------- Dictated By: Tawanda Almanzar Dictated Date: 08/08/2024 14:26 ET Assigned Physician: Tawanda Almanzar Reviewed and Electronically Signed By: Tawanda Almanzar Signed Date: 08/08/2024 14:32 ET Workstation ID: [id number] Transcribed By: Self Edit Transcribed Date: 08/08/2024 14:29 ET Narrative 08/08/2024 2:32 PM EDT EXAM: DIAGNOSTIC MAMMOGRAPHY, UNILATERAL LEFT ULTRASOUND: DIAGNOSTIC ULTRASOUND, UNILATERAL LEFT HISTORY: Abnormal clinical breast exam. Focal left breast pain for more than one month. Tenderness Family history of breast cancer, mother and maternal aunt. COMPARISON: Left mammography 02/11/2024, 02/09/2023, 12/23/2021, 12/18/2021, 11/26/2020 TECHNIQUE: Synthesized views of the left breast in the CC and MLO projections. Tomosynthesis of the left breast in the CC and MLO projections. ADDITIONAL IMAGING: None High-frequency linear transducer ultrasound of the left breast targeted to the area of clinical concern. Computer-aided detection was employed with the [employer] AI 3-D. TISSUE DENSITY: There are scattered areas of fibroglandular density. (BI-RADS category B) FINDINGS: MAMMOGRAPHY: LEFT BREAST: No suspicious mass. No suspicious calcification. No distortion. No suspicious finding or significant change in the area of pain. ULTRASOUND: LEFT BREAST: The outer left breast was examined with a high-frequency linear transducer including the area of pain in the 4 o'clock region. There is no suspicious mass. There is no suspicious area of altered echotexture. Procedure Note Tawanda Almanzar MD - 08/08/2024 EXAM: DIAGNOSTIC MAMMOGRAPHY, UNILATERAL LEFT ULTRASOUND: DIAGNOSTIC ULTRASOUND, UNILATERAL LEFT HISTORY: Abnormal clinical breast exam. Focal left breast pain for morethan one month. Tenderness Family history of breast cancer, mother and maternal aunt. COMPARISON: Left mammography 02/11/2024, 02/09/2023, 12/23/2021,12/18/2021, 11/26/2020 TECHNIQUE: Synthesized views of the left breast in the CC and MLOprojections. Tomosynthesis of the left breast in the CC and MLOprojections. ADDITIONAL IMAGING: None High-frequency linear transducer ultrasound of the left breast targeted tothe area of clinical concern. Computer-aided detection was employed with the [employer] AI 3-D. TISSUE DENSITY: There are scattered areas of fibroglandular density.(BI-RADS category B) FINDINGS: MAMMOGRAPHY: LEFT BREAST: No suspicious mass. No suspicious calcification. No distortion. No suspicious finding or significant change in the area of pain. ULTRASOUND: LEFT BREAST: The outer left breast was examined with a high-frequency linear transducerincluding the area of pain in the 4 o'clock region. There is no suspicious mass. There is no suspicious area of alteredechotexture. IMPRESSION: No mammographic or sonographic evidence of malignancy. No suspicious finding in the area of left breast pain. The patient should be managed on the basis of the clinical breast exam. ASSESSMENT: BI-RADS 1: NEGATIVE RECOMMENDATION(S): 1: Clinical correlation recommended LEFT The patient should resume regular screening mammography [facility] [address] [place], [address] -------- FINAL REPORT -------- Dictated By: Tawanda Almanzar Dictated Date: 08/08/2024 14:26 ET Assigned Physician: Tawanda Almanzar Reviewed and Electronically Signed By: Tawanda Almanzar Signed Date: 08/08/2024 14:32 ET Workstation ID: [id number] Transcribed By: Self Edit Transcribed Date: 08/08/2024 14:29 ET us Ingridvelvet Gross SLOT MACHINE KEY PERSON IMG BI PROCEDURES Final Result * COLONOSCOPY (07/08/2023 2:45 PM EST) Anatomical Region Laterality Modality Endoscopy us Historical Provider GI~PROCEDURE ORDERABLES F inal Result * RIGO DEXA AXIAL SKELETON (03/03/2022 11:47 AM EDT) Anatomical Region Laterality Modality Mammography 03/03/2022 10:5 3 AM EDT Narrative 03/03/2022 11:47 AM EDT [facility] Diagnostic Imaging Department [address] [place] [address] Patient: NANCI CHASE Juliana /Age/Sex: 1960 - 61 - F Unit#: [id number] Location/Status: SPDIMAM/REG CLI Mnemonic/Ordering Site: MAMDEXAAX/SPMAM Ordering Physician: HODA WILKS MD Rigo Dexa Axial Skeleton - 03/03/221121 HISTORY: The patient is a 61-year-old postmenopausal female with clinical concern for metabolic bone disease. FINDINGS: Dual energy x-ray absorptiometry of the lumbar spine and femurs is performed. The mean bone mineral density at L1-L4 is 1.258 gm/cm2 which is 107% of that of young normals and 112% of that of age matched controls. This yields a T-score of 0.7 and a Z-score of 1.1 and there is therefore no evidence of osteoporosis or osteopenia here. The mean bone mineral density of the femurs bilaterally is 0.878 gm/cm2 which is 87% of that of young normals and 91% of that of age matched controls. This yields a T-score of -1.0 and a Z-score of -0.6 and there is therefore no evidence of osteoporosis or osteopenia here. However, the T-score of the right femoral neck is -2.1 and that of the left femoral neck is -2.2 which is diagnostic of osteopenia. IMPRESSION: 1. Osteopenia. 2. FRAX analysis yields a 10-year probability of major osteoporotic fracture of 17.2% and a 10-year probability of hip fracture of 2.7%. Code 30745 Dictating Physician: DAVID WARD MD Electronically Signed by: DAVID WARD MD Dic Date/Time: 03/03/22 1143 Sign date/Time: 03/03/22 1147 Procedure Note David Ward MD - 05/21/2022 [facility] Diagnostic Imaging Department [address] [place] [address] Patient: NANCI CHASE /Age/Sex: 1960 - 61 -F Unit#: [id number] Location/Status: SPDIMAM/REG CLI Mnemonic/Ordering Site: MAMDEXAAX/SPMAM Ordering Physician: HODA WILKS MD Rigo Dexa Axial Skeleton - 03/03/22 - 1122 HISTORY: The patient is a 61-year-old postmenopausal female withclinical concern for metabolic bone disease. FINDINGS: Dual energy x-ray absorptiometry of the lumbar spine and femursis performed. The mean bone mineral density at L1-L4 is 1.258 gm/cm2 which is107% of that of young normals and 112% of that of age matched controls. Thisyields a T-score of 0.7 and a Z-score of 1.1 and there is therefore no evidenceof osteoporosis or osteopenia here. The mean bone mineral density of the femurs bilaterally is 0.878 gm/et5cuftu is 87% of that of young normals and 91% of that of age matched controls.This yields a T-score of -1.0 and a Z-score of -0.6 and there is therefore no evidence of osteoporosis or osteopenia here. However, the T-score of theright femoral neck is -2.1 and that of the left femoral neck is -2.2 which is diagnostic of osteopenia. IMPRESSION: 1. Osteopenia. 2. FRAX analysis yields a 10-year probability of major osteoporoticfracture of 17.2% and a 10-year probability of hip fracture of 2.7%. Code 18119 Dictating Physician: DAVID WARD MD Electronically Signed by: DAVID WARD MD [facility] Date/Time: 03/03/22 1143 Sign date/Time: 03/03/22 1147 Hoda Wilks MD IMG BI PROCEDURES Final Res ult from Last 3 Months or Most Recently Relevant to Health Maintenance Insurance [facility] Care Teams Councilman Relationship Specialty Start Date End Date Hoda Wilks MD [address] [facility] [address] [place] [address] PCP - General 03/18/10
--- OUTSIDE RECORDS SUMMARY | 2024-12-26 14:30 | XMS_ITS | Clinical Summary ---
Author Organization [facility] Address [address] [place] [address] Care Team Providers Care Tank Carpenter Name Role Phone No Pcp, Per Patient Primary Care Provider Rubens lable Allergies Active Allergy Reactions Criticality Noted Date Comments Codeine Nausea And Vomiting,Nausea / Vomiting 07/09/2018 Hydromorphone Other 09/22/2023 Oxycodone-Acetaminophen Nausea And Vomiting,Unknown,Nausea / Vomiting 07/09/2018 Propoxyphene Other,Nausea / Vomiting 07/09/2018 Sulfamethoxazole-Trimethoprim Rash Low 2023 Medications ALPRAZolam (Xanax) 0.5 mg tablet Take 0.5 mg by mouth if needed. Take every 6 to 8 hours 09/07/2023 Active zolpidem (Ambien) 5 mg tablet Take 5 mg by mouth if needed at bedtime. 06/24/2023 Active omeprazole (PriLOSEC) [address] capsule 03/25/2021 Active Active Problems Problem Noted Date Diagnosed Date Pheochromocytoma of left adrenal gland Multiple thyroid nodules 08/29/2024 Family History Medical History Relation Name Comments Colon cancer Father Lung cancer Father Colon cancer Father's Sister 1 Stomach cancer Father's Sister 2 Breast cancer Mother Breast cancer Mother's Sister Cancer Paternal Grandmother Relation Name Status Comments Father Father's Sister 1 Father's Sister 2 Mother Mother's Sister Paternal Grandmother Social History Tobacco Use Types Packs/Day Years Used Date Smoking Tobacco: Never Smokeless Tobacco: Never Tobacco Cessation:Counseling Given: Not Answered Alcohol Use Standard Drinks/Week Comments Never 0 (1 standard drink = 0.6 oz pur e alcohol) Comments Unknown Sex and Gender Information Value Date Recorded Sex Assigned at Not on file Legal Sex Female 10:08 AM EST Gender Identity Female 05/13/2023 10:09 AM EST Sexual Orientation Not on file Last Filed Vital Signs Vital Sign Reading Time Taken Comments Blood Pressure 119/80 08/29/2024 10:57 AM EDT Pulse 70 08/29/2024 10:57 AM EDT Temperature - - Respiratory Rate - - Oxygen Saturation 98% 08/29/2024 10:57 AM EDT Inhaled Oxygen Concentration - - Weight 97 kg (213 lb 12.8 oz) 08/29/2024 10:57 A M EDT Height 166.5 cm (5' 5.55 ) 08/29/2024 10:57 AM E DT Body Mass Index 34.98 08/29/2024 10:57 AM EDT Plan of Treatment Upcoming Encounters Date Type Department Care Team (Late st Contact Info) Description 02/28/2025 1:00 PM EDT Office Visit [facility] [address] [facility] [place] [address] Marely Valera MD [facility] [address] [place] [address] Health Maintenance Due Date Last Done Comments Bone Density Scan 1960 CT Colonography 1960 Colonoscopy 1960 Colorectal Cancer Screening 1960 FIT-DNA 1960 FIT 1960 FOBT 1960 HIV Screening 1960 Sigmoidoscopy 1960 Welcome to Medicare Visit (IPPE) 1960 MMR Vaccines (1 of 1 - Standard series) 1960 Hepatitis C Screening 1977 DTaP/Tdap/Td Vaccines (1 - Tdap) 1978 Hepatitis A Vaccines (1 of 2 - Risk 2-dose series) 1978 Pneumococcal Vaccine: 50+ Years (1 of 1 - PCV) 2009 Zoster Vaccines (1 of 2) 2009 Hepatitis B Vaccines (1 of 3 - Risk 3-dose series) 2019 COVID-19 Vaccine ( - 2023-2 5 season) 2024 Depression Screening 06/01/2024 Influenza Vaccine (#1) 2025 04/09/2015 Mammogram 08/08/2026 08/08/2024, 08/08/2024 HIB Vaccines Aged Out No longer eligi [...] patient's age to complete this topic Meningococcal Vaccine Aged Out No jeny ashley eligible based on patient's age to complete this topic Rotavirus Vaccines Aged Out No longer eligible based on patient's age to complete this topic Procedures Procedure Name Priority Date/Time Associated Diagnosis Comments CORTISOL AM Routine 12/16/2024 7:47 AM EDT Benign pheochromocytoma, left from Last 3 Months Results * Cortisol AM (12/16/2024 7:47 AM EDT) Cortisol - AM 14.2 6.2 - 19.4 ug/dL [facility] 1 Blood Venous blood specimen / Unknown 12/16/2024 7:47 AM EDT 12/16/2024 Narrative [facility] - 12/17/2024 10:15 AM EDT Performed at: 01 - [facility] [address] [id number] Major Gifts Manager: Sanjana Gr MD, Phone: [phone] us Lauren Grant MD LAB BLOOD ORDERABLES Final Re sult [facility] [address] [place] [address], [facility] 1 from Last 3 Months Insurance [facility] [place] [id number] Care Teams Tank Carpenter Relationship Specialty Start Date End Date No Pcp, Per Patient MITA PCP - General 09/22/23
== END 2024-12-26 14:45 | disposition home or self-care (01) ==
PROVIDERS: PCP Internal Medicine; Visit Provider Physician Assistant
DX: H60.312 Diffuse otitis externa, left ear (principal)